=== PATIENT | female | born 1995 | race Caucasian/White ===

== ENCOUNTER 2018-07-24 06:13 | Day surgery (SDC) | payer BC, OTHER ==
[~2018-07-24] VITALS: Ht 162.6 cm; Wt 84.7 kg
[2018-07-24 07:05] VITALS: Ht 162.6 cm; Wt 84.7 kg
[2018-07-24 07:44] VITALS: BP 126/76; PULSE 61; RESP 18
[2018-07-24] MEDS ORDERED: MEPERIDINE 50 MG INJ ONE (08:25)
[2018-07-24] MEDS ORDERED: MIDAZOLAM 1 MG/ML 2 ML INJ ONE (08:25)
[2018-07-24 08:33] VITALS: BP 116/68; PULSE 67; RESP 19
--- NOTE | 2018-07-26 14:57 | HPN ---
Date/Time of Note Date/Time of Note DATE: 07/26/18 TIME: 14:56 Interval H&P Admission Note Pt. seen H&P reviewed: No system changes HENRY GRAYSON MD Jul 26, 2018 14:57
== END 2018-07-24 11:30 | disposition home or self-care (01) ==
LOC: GIL 06:13
PROVIDERS: ATTEND Internal Medicine Gastroenterology
DX: K29.50 Unspecified chronic gastritis without bleeding (principal); K29.80 Duodenitis without bleeding
CPT/HCPCS: 43239; 84703; J2175; J2250; Z7610; 88305; 88312